=== PATIENT | female | born 1980 | race Caucasian/White ===

== ENCOUNTER 2020-12-03 05:03 | Inpatient (IN) | payer OTHER ==
[~2020-12-03 05:03] MED LIST: COLACE100 MG PO; FEOSOL325 MG PO; MOTRIN600 MG PO; PRENATABS RX T1 EACH PO
[2020-12-03 06:35] LABS: BILIRUBIN NEGATIVE (NEGATIVE); BLOOD 1+ Ery/uL (NEGATIVE); CLARITY CLEAR (CLEAR); COLOR YELLOW (YELLOW); GLUCOSE (U) NORMAL (NORMAL); LEUKOCYTES 1+ Leu/uL (NEGATIVE); NITRITE NEGATIVE (NEGATIVE); PROTEIN NEGATIVE (NEGATIVE); SPECIFIC GRAVITY <=1.005 (1.001-1.030); UROBILINOGEN 0.2 mg/dL (0.2-1.0)
[2020-12-03 06:45] LABS: BACTERIA TRACE; URINARY RBC RARE
[2020-12-03 08:08] LABS: HCT 33.5 % (37.0-47.0); HGB 11.1 g/dl (12.5-16.0); MCH 32.4 pg (25.0-31.0); MCHC 33.1 g/dL (32.0-36.0); MCV 97.7 fL (78.0-100.0); MPV 11.5 fL (6.0-9.5); RBC 3.43 M/uL (4.20-5.40); RDW 13.3 % (11.5-14.0); WBC 10.8 K/uL (4.0-10.5)
[2020-12-04 05:43] LABS: HCT 32.6 % (37.0-47.0); HGB 10.8 g/dl (12.5-16.0); MCHC 33.1 g/dL (32.0-36.0); MCV 96.7 fL (78.0-100.0); MPV 11.1 fL (6.0-9.5); RBC 3.37 M/uL (4.20-5.40); RDW 13.6 % (11.5-14.0); WBC 10.9 K/uL (4.0-10.5)
== END 2020-12-05 17:20 | disposition home or self-care (01) | DRG 806 ==
LOC: FOD 05:03 → FOB 05:09 → FOD 06:32 → FOB 06:33
PROVIDERS: Obstetrics & Gynecology; ADMIT Obstetrics & Gynecology
PROC: 0HQ9XZZ Repair Perineum Skin, External Approach (ICD-10-PCS; principal; 2020-12-03)
PROC: 10E0XZZ Delivery of Products of Conception, External Approach (ICD-10-PCS; principal; 2020-12-03)
PROC: 4A1HX4Z Monitoring of Products of Conception, Cardiac Electrical Activity, External Approach (ICD-10-PCS; principal; 2020-12-03)
DX: O70.0 First degree perineal laceration during delivery (principal); K51.90 Ulcerative colitis, unspecified, without complications; Z37.0 Single live birth; Z3A.37 37 weeks gestation of pregnancy; O99.02 Anemia complicating childbirth; D50.9 Iron deficiency anemia, unspecified; Z20.822 Contact with and (suspected) exposure to COVID-19; D64.9 Anemia, unspecified; O80 Encounter for full-term uncomplicated delivery
CPT/HCPCS: 36415; 81001; 84112; 86850; 86900; 86901; J7120; U0002

== ENCOUNTER 2020-12-06 10:19 | Day surgery (SDCO) | payer OTHER ==
[2020-12-06 12:03] LABS: BASOPHIL 0.3 % (0-2); EOSINOPHIL 0 % (0-5); HCT 37.6 % (37.0-47.0); HGB 12.7 g/dl (12.5-16.0); LYMPHOCYTE 2.2 % (15-48); MCH 32.6 pg (25.0-31.0); MCHC 33.8 g/dL (32.0-36.0); MCV 96.4 fL (78.0-100.0); MONOCYTE 4.4 % (0-12); MPV 11.1 fL (6.0-9.5); NRBC 0; PLT 166 K/uL (150-400); RDW 13.6 % (11.5-14.0); WBC 20.3 K/uL (4.0-10.5)
[2020-12-06 12:38] LABS: ALBUMIN 3.1 g/dL (3.4-5.0); BILIRUBIN - TOTAL 0.8 mg/dL (0.2-1.0); BUN/CREAT RATIO (CALC) 31.9 RATIO; CREATININE 0.47 mg/dL (0.51-0.95); GLOBULIN (CALCULATION) 4.2 g/dL; POTASSIUM 3.2 mmol/L (3.5-5.1); TOTAL PROTEIN 7.3 g/dL (6.4-8.2)
[2020-12-06 13:55] LABS: BILIRUBIN NEGATIVE (NEGATIVE); BLOOD NEGATIVE Ery/uL (NEGATIVE); CLARITY CLEAR (CLEAR); COLOR YELLOW (YELLOW); GLUCOSE (U) NORMAL (NORMAL); LEUKOCYTES NEGATIVE Leu/uL (NEGATIVE); NITRITE NEGATIVE (NEGATIVE); PROTEIN NEGATIVE (NEGATIVE); SPECIFIC GRAVITY 1.025 (1.001-1.030); UROBILINOGEN 0.2 mg/dL (0.2-1.0); pH 5.5 (5.0-9.0)
[2020-12-07 05:38] LABS: BASOPHIL 0.4 % (0-2); EOSINOPHIL 0.1 % (0-5); HCT 30.5 % (37.0-47.0); HGB 10.4 g/dl (12.5-16.0); LYMPHOCYTE 5.4 % (15-48); MCH 32.4 pg (25.0-31.0); MCHC 34.1 g/dL (32.0-36.0); MONOCYTE 4.1 % (0-12); MPV 10.5 fL (6.0-9.5); NEUTROPHIL 87.5 % (41-80); NRBC 0.2; PLT 145 K/uL (150-400); RBC 3.21 M/uL (4.20-5.40); RDW 13.6 % (11.5-14.0); WBC 10.9 K/uL (4.0-10.5)
== END 2020-12-08 11:09 | disposition home or self-care (01) ==
LOC: FOB 10:19
PROVIDERS: ADMIT Obstetrics & Gynecology
DX: R50.9 Fever, unspecified (principal); D64.9 Anemia, unspecified; N71.9 Inflammatory disease of uterus, unspecified; K51.90 Ulcerative colitis, unspecified, without complications; R10.9 Unspecified abdominal pain; R94.5 Abnormal results of liver function studies; Z87.59 Personal history of other complications of pregnancy, childbirth and the puerperium; Z86.59 Personal history of other mental and behavioral disorders; Z98.890 Other specified postprocedural states; M79.669 Pain in unspecified lower leg
CPT/HCPCS: 36415; 71046; 80053; 81003; 83605; 85025; 87088; 93970; G0378; J2543; J7120